=== PATIENT | female | born 1955 | race Caucasian/White ===

== ENCOUNTER 2019-02-25 08:42 | Day surgery (SDC) | payer BC, MEDICARE ==
[2019-02-25] MEDS ORDERED: fentaNYL 100 MCG/2 ML SDV ONE (10:03)
[2019-02-25] MEDS ORDERED: Propofol 200 MG/20 ML SDV ONE (10:03)
[2019-02-25] MEDS ORDERED: Midazolam 1 MG/ML 2 ML SDV ONE (10:03)
[2019-02-25] MEDS ORDERED: Lactated Ringers 1,000 ML IV SCH (10:15)
--- NOTE | 2019-02-25 14:13 | OR ---
DATE OF PROCEDURE: 02/25/2019 PREOPERATIVE DIAGNOSIS: Positive Cologuard. POSTOPERATIVE DIAGNOSES: Positive Cologuard, small colon polyps, 20 cm from anal verge x 2. PROCEDURE: Colonoscopy to the cecum with biopsy resection of two small colon polyps, 20 cm from the anal verge, sent to the laboratory as one specimen. ANESTHESIA: IV anesthesia with monitored anesthesia care. SURGEON: Dave Barraza MD INDICATION: This 63-year-old white female is referred for a colonoscopy. She has a positive Cologuard. This is her first colonoscopic exam. I counseled her for the procedure including risks and alternatives, and she gave her informed consent to proceed. DESCRIPTION OF PROCEDURE: The patient was placed in the left lateral decubitus position. IV anesthesia was administered by the Anesthesia Service. Time-out was held. A rectal exam was performed, which was unremarkable. The flexible video Olympus colonoscope was introduced through her anus, up her rectum, and out her colon all the way to the cecum. Once the cecum was reached, the scope was slowly withdrawn examining the mucosa throughout. No mucosal abnormalities were noted until we reached about 20 cm from the anal verge. Here, we saw two small polyps adjacent to each other, which were removed with the biopsy forceps and sent to the laboratory as one specimen. The scope was brought back in the rectum, where it was retroflexed. The distal rectum appeared unremarkable. The scope was straightened and removed. She tolerated the procedure well. Dave Barraza MD /[id number] [email or web address]
== END 2019-02-25 12:37 | disposition home or self-care (01) ==
LOC: JP.SDS 08:42
PROVIDERS: ATTEND Surgery
DX: R19.5 Other fecal abnormalities (principal); K63.5 Polyp of colon; I10 Essential (primary) hypertension; E11.9 Type 2 diabetes mellitus without complications; E66.9 Obesity, unspecified; Z68.28 Body mass index [BMI] 28.0-28.9, adult; Z91.012 Allergy to eggs; Z88.8 Allergy status to other drugs, medicaments and biological substances; Z88.0 Allergy status to penicillin
CPT/HCPCS: 45380; J2250; J2704; J3010; J7120; 88305